=== PATIENT | male | born 1970 | race Caucasian/White ===

== ENCOUNTER → 2018-11-11 10:35 | Outpatient (CLI) | payer MEDICAID, SELFPAY ==
--- NOTE | 2018-11-11 10:43 | XR_ITS ---
XR forearm RT 2V HISTORY: ITS.REASON: KNOT ON RT FOREARM ORDERING PHYSICIAN: Chiara Izquierdo PATIENT AGE: 48 years COMPARISON: None FINDINGS: No obvious fracture, dislocation, lytic change or blastic change. Normal mineralization. Unremarkable soft tissues. A small osteophyte is present at the coracoid process as described in the elbow report. IMPRESSION: Small osteophyte of the coracoid process otherwise negative right forearm
--- NOTE | 2018-11-11 10:43 | XR_ITS ---
XR elbow LT min 3V HISTORY: ITS.REASON: LT ELBOW PAIN ORDERING PHYSICIAN: Chiara Izquierdo PATIENT AGE: 48 years COMPARISON: None FINDINGS: No fracture or dislocation. No lytic or blastic change. There is a small curvilinear osteophyte along the proximal and anterior aspect of the coracoid process. No displaced fat pad. IMPRESSION: Osteophyte of the coracoid process otherwise negative left elbow
--- NOTE | 2018-11-11 10:43 | XR_ITS ---
EXAM: XR cervical spine 5V HISTORY: ITS.REASON: NECK PAIN ORDERING PHYSICIAN: Chiara Izquierdo PATIENT AGE: 48 years COMPARISON: None FINDINGS: Normal alignment. No fracture or dislocation. No lytic or blastic change. No significant degenerative change. The disc spaces are preserved. The neural foramina are widely patent. No cervical ribs evident. IMPRESSION: Negative cervical spine
== END ==
PROVIDERS: PCP Nurse Practitioner Family; Visit Provider Nurse Practitioner Family
DX: M54.2 Cervicalgia (principal); M25.522 Pain in left elbow; M79.631 Pain in right forearm
CPT/HCPCS: 72050; 73080; 73090

== ENCOUNTER → 2018-11-22 09:29 | Outpatient (CLI) | payer MEDICAID, SELFPAY ==
--- NOTE | 2018-11-22 09:34 | US_ITS ---
US extremity RT limited CLINICAL INDICATION: ITS.REASON: RT FOREARM LUMP ORDERING PHYSICIAN: Chiara Izquierdo PATIENT AGE: 48 years Comparison: None FINDINGS: There is a 6 x 2 x 5 mm hypoechoic subcutaneous nodule in the proximal forearm corresponding to the palpable abnormality there is some blood flow noted around this lesion. IMPRESSION: Palpable nodule corresponds to a small cystic lesion in the subcutaneous area of the right proximal forearm.
== END ==
PROVIDERS: PCP Nurse Practitioner Family; Visit Provider Nurse Practitioner Family
DX: R22.31 Localized swelling, mass and lump, right upper limb (principal)
CPT/HCPCS: 76882

== ENCOUNTER 2020-02-12 10:32 | Emergency (ER) | payer SELFPAY ==
[2020-02-12 10:34] VITALS: BP 137/97; PULSE 81; RESP 18; TEMP 37; O2SAT 98; BMI 30.4
--- NOTE | 2020-02-12 12:05 | XR_ITS ---
PROCEDURE: XR KNEE RT 3V CLINICAL INDICATION: fall with pain COMPARISON: No exams were available for comparison FINDINGS: No fracture or dislocation. No lytic or blastic change. There is normal mineralization. The joint spaces are well-preserved. No significant degenerative/arthritic changes. No erosive changes evident. Other findings:None. IMPRESSION: No acute findings. Dictated by: Jonathan Jacobo MD 02/12/2020 13:51 Electronically signed by Jonathan Jacobo MD in [place] 02/12/2020 13:51
--- NOTE | 2020-02-12 12:39 | HMH.EDGENADL ---
ED Disposition Clinical Impression: Strain of right calf muscle Disposition: Home, Self-Care Condition on Discharge: Good Instructions: DI for Calf Muscle Strain, How to Use Crutches Additional Instructions: Crutches for 4 days. Ice and elevation. Ibuprofen for pain. Follow-up with primary care provider or orthopedics if not improved by Sunday. Prescriptions: Ibuprofen [Ibuprofen 800mg Tab] 800 mg PO Q8HP PRN #15 tab PRN Reason: Moderate Pain Prescription Printed Referrals: Ruma Purcell [Primary Care Provider] - Rea Burroughs MD [Physician] - - Critical Care Critical Care Time: No Attestation: On 02/12/20, the high probability of a clinically significant, sudden or life threatening deterioration of the following system(s) required my full and direct attention, intervention and personal management. The time I documented below is in addition to time spent performing reported procedures but includes the following listed in this critical care notation. Medical Decision Making - Dante Inquiry Pt receiving controlled substance: No Vital Signs: 02/12/20 10:34 Temperature 98.6 F Temperature Source Oral Pulse Rate [Left Radial] 81 Respiratory Rate 18 Blood Pressure [Right Arm] 137/97 H Blood Pressure Mean [Right Arm] 110 Blood Pressure Position [Right Arm] Sitting 02 Sat by Pulse Oximetry 98 Oxygen Delivery Method Room Air Orders (Tests/Meds): ORDERS Category Date Time Status Knee XR right 3 views [XR knee RT 3V] Stat Exams 02/12/20 12:05 Taken Medical Decision Narrative: Symptoms and exam suggest a muscular injury rather than a knee joint injury. General Adult HPI - General Chief complaint: PAIN Stated complaint: fall at work Time Seen by Provider: 02/12/20 12:39 Mode of Arrival: Ambulatory Limitations: No Limitations Description of Symptoms (Recalled from ER Triage Doc. by RN): to ed per pvt car with c/o rt knee pain states at work yesterday and stepped back tripped over a colvert pipe and fell backwards injuring rt leg. pt c/o pain lateral rt knee radiating down leg. pt states pain with movement. - History of Present Illness HPI narrative: Planes of an injury to his right lower leg. He tripped over a pipe yesterday and did something to his leg. He thought he could walk it off, but it has persisted and hurting whenever he moves it a certain way. He has no pain at rest. He locates the pain in the mid to proximal lateral right calf. Does not actually have pain in his knee joint. - Related Data Previous Rx's Medication Instructions Recorded Ibuprofen [Ibuprofen 800mg Tab] 800 mg PO Q8HP PRN #15 tab 02/12/20 Allergies Allergy/AdvReac Type Severity Reaction Status Date / Time No Known Allergies Allergy Unverified 08/28/17 15:10 [facility] History - Hepatitis A Screen Drug use history?: No High risk sexual behaviors?: No History of sexually transmitted infection?: No Currently employed?: No Childcare worker?: No Do you have indoor plumbing?: Yes Do you have electricity?: Yes Attestation statement:: This patient has been screened for Hepatitis A risk factors. I have reviewed the patient's past medical history: Yes - Social History Smoking Status: Current every day smoker Tobacco Type: cigarettes # Packs/Day (cigarettes): 2 Alcohol Intake: never Occupational Status: other Housing: other ROS Obtained: Yes Systems reviewed as appropriate & no additional complaints - Musculoskeletal Musculoskeletal: Reports as per HPI - Neurologic Neurologic: Denies numbness, Denies weakness Physical Exam - General General appearance: alert, in no apparent distress Comment: Sitting in a chair - Respiratory Respiratory exam: Absent: respiratory distress - Cardiovascular Cardiovascular exam: Present: regular rate - Extremities Exam Extremities exam: Present: normal capillary refill - Expanded Lower Extremity Exam Right Comment: Tenderness o
[2020-02-12 13:05] VITALS: BP 138/70; PULSE 80; RESP 16; TEMP 36.8; O2SAT 98
== END 2020-02-12 13:05 | disposition home or self-care (01) ==
PROVIDERS: Emergency Provider Emergency Medicine; PCP Nurse Practitioner Family
DX: S86.811A Strain of other muscle(s) and tendon(s) at lower leg level, right leg, initial encounter (principal); W01.0XXA Fall on same level from slipping, tripping and stumbling without subsequent striking against object, initial encounter; Y92.69 Other specified industrial and construction area as the place of occurrence of the external cause; Y99.0 Civilian activity done for income or pay; F17.210 Nicotine dependence, cigarettes, uncomplicated
CPT/HCPCS: 73562; 99282

== ENCOUNTER 2020-04-02 20:56 | Emergency (ER) | payer MEDICAID, SELFPAY ==
[2020-04-02 21:07] VITALS: BP 128/90; PULSE 82; RESP 14; TEMP 37; O2SAT 98; BMI 30.4
--- NOTE | 2020-04-02 21:15 | CT_ITS ---
PROCEDURE: CT CERVICAL SPINE WO CON CLINICAL INDICATION: neck pain Bilateral neck pain COMPARISON: [id number] XR cervical spine 5V from 11/11/2018 TECHNIQUE: Axial images obtained with sagittal and coronal reformats. All CT scans at the facility use one or more dose reduction, viz: automated exposure control, ma/kV adjustment per patient size (including targeted exams where dose is matched to indication, i.e. head), or iterative reconstruction technique. Axial spiral CT scanning performed of the cervical spine beginning at the base of the skull and continuing to the upper T-spine. 3-D multiplanar reconstruction with 3-D manipulation of volumetric data set in image rendering was completed by the radiologist and/or technologist with the supervision of the radiologist on independent workstation. FINDINGS: There is normal alignment. There is a well-circumscribed lucency through the superior tip of the superior facet of T1 on the right best detected on series 601, image 24 consistent with either an old fracture or ununited ossification center. No canal stenosis. No bony destructive changes. There are few scattered small lymph nodes in the neck. Lung apices are clear. The minimal bulging disc noted at C4-C5 centrally There is bilateral polypoid thickening in the external auditory canals IMPRESSION: 1. Lucency through the superior aspect of the superior facet of T1 on the right and may be due to an old fracture versus ununited ossification center. MRI may provide further evaluation to determine the age of this finding. 2. Minimal bulging disc C4-C5 Dictated by: Jonathan Jacobo MD 04/03/2020 07:28 Electronically signed by Jonathan Jacobo MD in [place] 04/03/2020 07:28
--- NOTE | 2020-04-02 22:11 | HMH.EDNECK ---
ED Disposition Clinical Impression: Acute cervical myofascial strain Qualifiers: Encounter type: initial encounter Qualified Code(s): S16.1XXA - Strain of muscle, fascia and tendon at neck level, initial encounter Disposition: Home, Self-Care Condition on Discharge: Good Instructions: DI for Neck Pain Additional Instructions: use meds and see pcp for follow up Prescriptions: predniSONE [Prednisone 20mg Tab] 20 mg PO BID #10 tab Transmission Status: Pending to [facility] Referrals: Maddie Nuñez APRN [Primary Care Provider] - - Critical Care Critical Care Time: No Attestation: On 04/02/20, the high probability of a clinically significant, sudden or life threatening deterioration of the following system(s) required my full and direct attention, intervention and personal management. The time I documented below is in addition to time spent performing reported procedures but includes the following listed in this critical care notation. Medical Decision Making - Medical Records Medical records reviewed: Yes: I reviewed the patient's medical records. - Dante Inquiry Pt receiving controlled substance: No Vital Signs: 04/02/20 21:07 Temperature 98.6 F Temperature Source Oral Pulse Rate [Right] 82 Respiratory Rate 14 Blood Pressure [Right Arm] 128/90 Blood Pressure Mean [Right Arm] 102 Blood Pressure Source [Right Arm] Automatic Cuff Blood Pressure Position [Right Arm] Sitting 02 Sat by Pulse Oximetry 98 Oxygen Delivery Method Room Air Orders (Tests/Meds): ORDERS Category Date Time Status CT cervical spine wo con Stat Cat Scan 04/02/20 21:15 Taken - CT Data CT Scan: C-Spine Time Received: 22:[address] Reviewed: Yes: I have viewed the radiologist's interpretation Preliminary Findings: No Fracture Seen Neck Pain/Injury HPI - General Chief Complaint: Neck Pain/Injury Stated Complaint: Neck pain radiating up into head Time Seen by Provider: 04/02/20 21:30 Source of Information: Patient, Medical Record Limitations: No Limitations Description of Symptoms (Recalled from ER Triage Doc. by RN): Pt states he has had neck pain for about a month, denies any trauma, has appointment with PCP at [facility] on sunday, wants x-rays for his appointment. - History of Present Illness HPI Narrative: midline neck pain over the last month w/o fever and no rash and no trauma - no focal neuro sx MD complaint: neck pain Onset (ago): week(s) Place: home Severity: moderate Quality: dull Context: other (no trauma ) Associated symptoms: headache Treatments prior to arrival: acetaminophen, ibuprofen - Related Data Previous Rx's Medication Instructions Recorded Ibuprofen [Ibuprofen 800mg Tab] 800 mg PO Q8HP PRN #15 tab 02/12/20 predniSONE [Prednisone 20mg 20 mg PO BID #10 tab 04/02/20 Tab] Allergies Allergy/AdvReac Type Severity Reaction Status Date / Time No Known Allergies Allergy Unverified 08/28/17 15:10 [facility] History - Hepatitis A Screen Drug use history?: No High risk sexual behaviors?: No History of sexually transmitted infection?: No Currently employed?: No Childcare worker?: No Do you have indoor plumbing?: Yes Do you have electricity?: Yes Attestation statement:: This patient has been screened for Hepatitis A risk factors. I have reviewed the patient's past medical history: Yes Medical History: Denies:: Diabetes Mellitus Type 1, Diabetes Mellitus Type 2 - Social History Smoking Status: Current every day smoker Tobacco Type: cigarettes # Packs/Day (cigarettes): 2 Alcohol Intake: never Occupational Status: employed Housing: other ROS Obtained: Yes All systems reviewed & no additional complaints - Constitutional Constitutional: Denies fever(s) - Eyes Eyes: Denies change in vision - ENT Ears, Nose, Mouth, and Throat: Denies sore throat - Cardiovascular Cardiovascular: Denies chest pain - Respiratory Respiratory: No cough -
[2020-04-02 22:42] VITALS: BP 132/72; PULSE 76; RESP 14; TEMP 37; O2SAT 99
== END 2020-04-02 22:45 | disposition home or self-care (01) ==
PROVIDERS: Emergency Provider Emergency Medicine; PCP Nurse Practitioner Family
DX: S16.1XXA Strain of muscle, fascia and tendon at neck level, initial encounter (principal)
CPT/HCPCS: 72125; 99282

== ENCOUNTER 2020-07-19 12:08 | Emergency (ER) | payer MEDICAID, SELFPAY ==
[2020-07-19] VITALS (7 sets, daily range): BP systolic 114–131; BP diastolic 75–88; PULSE 84–104; RESP 18–19; TEMP 36.8; O2SAT 95–96; BMI 7030.0
--- NOTE | 2020-07-19 12:22 | ECG_ITS ---
APPROVED REPORT Exam: Resting ECG HR:88 bpm ECG Measurements Heart Rate 88 AXES MO 190 P 53 QRSd 104 QRS -22 QT 358 T 57 QTc 433 Conclusion Normal sinus rhythm Poor R Wave Progression LAD Abnormal ECG Electronically signed by : David Queen, 07/20/2020 17:27:53
--- NOTE | 2020-07-19 12:38 | XR_ITS ---
PROCEDURE: XR CHEST PORTABLE CLINICAL HISTORY: chest pain COMPARISON: No exams were available for comparison FINDINGS: The cardiomediastinal silhouette and pulmonary vascularity are within normal limits. No lobar consolidation or collapse. There is some hyperattenuation in the upper lobe suggesting COPD. A nodular opacity is noted in the left midlung at 9 mm. No acute bony abnormalities. IMPRESSION: Possible COPD with left midlung nodule. Follow-up suggested to confirm stability. Dictated by: Jonathan Jacobo MD 07/19/2020 14:28 Jonathan Jacobo MD in [place] 07/19/2020 14:28
--- NOTE | 2020-07-19 12:50 | PC.NURSE ---
Rad at bedside
[2020-07-19 13:09] LABS: Chloride 103 mmol/L (98-107); Potassium 3.7 mmoL/L (3.5-5.1); Sodium 141 mmol/L (136-145)
[2020-07-19 13:12] LABS: Anion Gap 13.7 mEq/L (5-15); Blood Urea Nitrogen 8 mg/dl (9-20); Calcium 9.9 mg/dl (8.4-10.2); Carbon Dioxide 28 mmol/L (22.0-30.0); Estimated Glomerular Filt Rate 102 ml/min (>60); GFR (African American) 124 ML/MIN (>60); Glucose 153 mg/dl (74-100)
[2020-07-19 13:30] LABS: Troponin I < 0.01 ng/ml (0.00-0.034)
[2020-07-19 13:40] LABS: Basophils # 0.1 K/mm3 (0-0.2); Basophils % 0.8 % (0.1-2.0); Eosinophils # 0.1 K/mm3 (0.0-0.4); Eosinophils % 1.7 % (0.1-12.0); Hematocrit 48.1 % (42.0-52.0); Hemoglobin 16.8 g/dL (14.1-18.0); Lymphocytes # 1.6 K/mm3 (0.7-4.5); Lymphocytes % 25.4 % (10-50); Mean Corpuscular HGB Conc 34.9 g/dL (31.8-35.4); Mean Corpuscular Hemoglobin 31.7 pg (27.0-31.2); Mean Corpuscular Volume 90.8 fl (80-94); Mean Platelet Volume 8.1 fl (7.4-10.4); Monocytes # 0.5 K/mm3 (0.1-1.0); Monocytes % 7.3 % (1.7-9.3); Neutrophils # 4.2 K/mm3 (1.8-7.8); Neutrophils % 64.8 % (37.0-80.0); Platelet Count 229 K/mm3 (142-424); Red Cell Distribution Width 13.1 % (11.5-17.5); White Blood Count 6.4 K/mm3 (4.8-10.8)
--- NOTE | 2020-07-19 14:05 | HMH.EDCP ---
ED Disposition Clinical Impression: Shortness of breath, Lung nodule Chest pain Qualifiers: Chest pain type: unspecified Qualified Code(s): R07.9 - Chest pain, unspecified Disposition: Home, Self-Care Condition on Discharge: Good Instructions: DI for Atypical Chest Pain, DI for Shortness of Breath Referrals: Maddie Nuñez APRN [Primary Care Provider] - 3 days Richard Garcia MD [Staff Physician] - 3 days - Critical Care Critical Care Time: No Attestation: On 07/19/20, the high probability of a clinically significant, sudden or life threatening deterioration of the following system(s) required my full and direct attention, intervention and personal management. The time I documented below is in addition to time spent performing reported procedures but includes the following listed in this critical care notation. Medical Decision Making - Medical Records Medical records reviewed: Yes: I reviewed the patient's medical records. - Dante Inquiry Pt receiving controlled substance: No Vital Signs: 07/19/20 12:32 07/19/20 12:48 07/19/20 13:08 Temperature 98.2 F Temperature Source Oral Pulse Rate 84 Pulse Rate [Left] 84 91 H Respiratory Rate 19 Blood Pressure [Right Arm] 123/88 131/81 Blood Pressure Mean [Right Arm] 99 97 Blood Pressure Source [Right Arm] Automatic Cuff Automatic Cuff Blood Pressure Position [Right Arm] Supine Sitting 02 Sat by Pulse Oximetry 95 96 Oxygen Delivery Method Room Air Room Air 07/19/20 13:11 07/19/20 13:39 07/19/20 15:02 Temperature Temperature Source Pulse Rate Pulse Rate [Left] 104 H 100 H 90 Respiratory Rate Blood Pressure [Right Arm] 122/77 121/88 114/75 Blood Pressure Mean [Right Arm] 92 99 88 Blood Pressure Source [Right Arm] Automatic Cuff Automatic Cuff Automatic Cuff Blood Pressure Position [Right Arm] Sitting Sitting Sitting 02 Sat by Pulse Oximetry 96 95 96 Oxygen Delivery Method Room Air Room Air Room Air - Lab Data Lab results reviewed: Yes: I reviewed the patient's lab results. Lab Results 07/19/20 12:05: WBC 6.4, RBC 5.30, Hgb 16.8, Hct 48.1, MCV 90.8, MCH 31.7 H, MCHC 34.9, RDW 13.1, Plt Count 229, MPV 8.1, Neut % (Auto) 64.8, Lymph % (Auto) 25.4, [place] % (Auto) 7.3, Eos % (Auto) 1.7, Baso % (Auto) 0.8, Neut # (Auto) 4.2, Lymph # (Auto) 1.6, [place] # (Auto) 0.5, Eos # (Auto) 0.1, Baso # (Auto) 0.1 07/19/20 12:05: Sodium 141, Potassium 3.7, Chloride 103, Carbon Dioxide 28, Anion Gap 13.7, BUN 8 L, Creatinine 0.80, Estimated Creat Clear -134 L, Estimated GFR 102, Est GFR ( Amer) 124, Glucose 153 H, Calcium 9.9, Troponin I < 0.01 07/19/20 12:50: Troponin I < 0.01, TSH 1.56 07/19/20 12:50: D-Dimer 0.34 07/19/20 12:50: Free T4 0.96 Result diagrams: 07/19/20 12:05 07/19/20 12:05 Orders (Tests/Meds): ED MEDICATIONS Generic Name Dose Route Start Last Admin Trade Name Freq PRN Reason Stop Dose Admin Sodium Chloride 1,000 mls @ 999 mls/hr 07/19/20 14:30 07/19/20 14:22 Sod Chlor 0.9% 1000ml Bag IV 07/19/20 15:30 999 mls/hr .Q1H1M SRINI Administration Discontinued Medications Generic Name Dose Route Start Last Admin Trade Name Freq PRN Reason Stop Dose Admin Aspirin 324 mg 07/19/20 12:42 07/19/20 12:44 Aspirin 81mg Chewable Tablet PO 07/19/20 12:43 324 mg ONCE ONE Administration ORDERS Category Date Time Status Troponin I Q3H Lab 07/19/20 18:45 Ordered - Radiology Data #1 Image Reviewed: Yes I reviewed the patient's radiology image Preliminary Findings: Normal/NAD - ECG Data Tracing #1 EKG at 1222 shows normal sinus rhythm with a rate of 88. No acute ST segment elevation or depression. No hyperacute T waves. Normal intervals. EKG interpreted by me. - ELIGIO Score for Non-Stemi Age of Patient: 50-59 years old Heart Rate: 90-109 bpm Systolic Blood Pressure: 120-139 mmhg Serum Creatinine: 0.80-1.19 mg/dl CHF [place] Class: I-No CHF Other Risk Factors: None Non-
[2020-07-19 14:31] LABS: D-Dimer 0.34 ug/mL (0.15-8.0)
[2020-07-19 14:45] LABS: Free T4 (Free Thyroxine) 0.96 ng/dl (0.78-2.19)
[2020-07-19 14:58] LABS: Thyroid Stimulating Hormone 1.56 uIU/mL (0.465-4.68)
[2020-07-19 14:59] LABS: Troponin I < 0.01 ng/ml (0.00-0.034)
== END 2020-07-19 15:25 | disposition home or self-care (01) ==
PROVIDERS: Emergency Provider Emergency Medicine; PCP Nurse Practitioner Family
DX: R07.9 Chest pain, unspecified (principal); R91.1 Solitary pulmonary nodule; J44.9 Chronic obstructive pulmonary disease, unspecified; E78.5 Hyperlipidemia, unspecified; I10 Essential (primary) hypertension; F17.210 Nicotine dependence, cigarettes, uncomplicated
CPT/HCPCS: 71045; 80048; 84439; 84443; 84484; 85025; 85378; 93005; 96365; 99283

== ENCOUNTER 2020-11-22 16:25 | Emergency (ER) | payer OTHER, SELFPAY ==
[2020-11-22] VITALS (13 sets, daily range): BP systolic 125–145; BP diastolic 68–96; PULSE 72–95; RESP 18–19; TEMP 36.7–36.8; O2SAT 96–98; BMI 33.3
--- NOTE | 2020-11-22 16:38 | XR_ITS ---
PROCEDURE: XR CHEST 2V CLINICAL HISTORY: chest pain COMPARISON: CR XR CHEST PORTABLE from 07/19/2020 FINDINGS: The cardiomediastinal silhouette and pulmonary vascularity are within normal limits. The lungs are clear without infiltrates, suspicious nodules, or pleural effusions. There is mild coarsening of the bronchovascular markings nonspecific but may be seen with smoking related lung disease. No acute bony findings. IMPRESSION: Coarsening of the bronchovascular markings which may be seen with smoking related lung disease otherwise negative Dictated by: Jonathan Jacobo MD 11/22/2020 20:25 Jonathan Jacobo MD in [place] 11/22/2020 20:25
--- NOTE | 2020-11-22 16:40 | ECG_ITS ---
APPROVED REPORT Exam: Resting ECG HR:80 bpm ECG Measurements Heart Rate 80 AXES NV 192 P 58 QRSd 96 QRS -34 QT 366 T 56 QTc 422 Conclusion Normal sinus rhythm Left axis deviation Abnormal ECG Electronically signed by : Hernesto Morelos, 11/23/2020 19:37:10
[2020-11-22 16:53] LABS: Basophils # 0.1 K/mm3 (0-0.2); Basophils % 0.9 % (0.1-2.0); Eosinophils # 0.2 K/mm3 (0.0-0.4); Eosinophils % 2.6 % (0.1-12.0); Hematocrit 46.5 % (42.0-52.0); Hemoglobin 15.9 g/dL (14.1-18.0); Lymphocytes # 2.2 K/mm3 (0.7-4.5); Lymphocytes % 27.6 % (10-50); Mean Corpuscular HGB Conc 34.2 g/dL (31.8-35.4); Mean Corpuscular Hemoglobin 30.9 pg (27.0-31.2); Mean Corpuscular Volume 90.3 fl (80-94); Mean Platelet Volume 7.6 fl (7.4-10.4); Monocytes # 0.7 K/mm3 (0.1-1.0); Monocytes % 8.8 % (1.7-9.3); Neutrophils # 4.8 K/mm3 (1.8-7.8); Platelet Count 238 K/mm3 (142-424); Red Blood Count 5.15 M/mm3 (4.60-6.20); Red Cell Distribution Width 13.2 % (11.5-17.5)
[2020-11-22 17:05] LABS: Anion Gap 12.2 mEq/L (5-15); Blood Urea Nitrogen 9 mg/dl (9-20); Calcium 9.2 mg/dl (8.4-10.2); Carbon Dioxide 25 mmol/L (22.0-30.0); Chloride 107 mmol/L (98-107); Creatinine Clearance Estimated 153 mL/min (50-200); Estimated Glomerular Filt Rate 102 ml/min (>60); GFR (African American) 123 ML/MIN (>60); Glucose 97 mg/dl (74-100); Potassium 4.2 mmoL/L (3.5-5.1); Sodium 140 mmol/L (136-145)
[2020-11-22 17:17] LABS: Troponin I < 0.01 ng/ml (0.00-0.034)
--- NOTE | 2020-11-22 20:02 | HMH.EDCP ---
ED Disposition Clinical Impression: Atypical chest pain, Costochondritis, acute Disposition: Home, Self-Care Condition on Discharge: Good Instructions: DI for Atypical Chest Pain Referrals: Maddie Nuñez APRN [Primary Care Provider] - 3 days Richard Garcia MD [Staff Physician] - 11/23/20 8:00 am Time of Disposition: 20:14 - Critical Care Critical Care Time: No Attestation: On 11/22/20, the high probability of a clinically significant, sudden or life threatening deterioration of the following system(s) required my full and direct attention, intervention and personal management. The time I documented below is in addition to time spent performing reported procedures but includes the following listed in this critical care notation. Medical Decision Making - Dante Inquiry Pt receiving controlled substance: No Vital Signs: 11/22/20 16:28 11/22/20 16:33 11/22/20 16:34 Temperature 98.3 F Temperature Source Oral Pulse Rate 95 H Pulse Rate [Right Radial] 95 H Respiratory Rate 18 18 Blood Pressure 131/89 Blood Pressure [Right Arm] 145/89 H Blood Pressure Mean 101 Blood Pressure Mean [Right Arm] 107 Blood Pressure Source [Right Arm] Automatic Cuff Blood Pressure Position [Right Arm] Sitting 02 Sat by Pulse Oximetry 97 97 96 Oxygen Delivery Method Room Air 11/22/20 16:47 11/22/20 17:00 11/22/20 17:15 Temperature Temperature Source Pulse Rate 72 Pulse Rate [Right Radial] Respiratory Rate 18 Blood Pressure 136/96 H Blood Pressure [Right Arm] Blood Pressure Mean 105 Blood Pressure Mean [Right Arm] Blood Pressure Source [Right Arm] Blood Pressure Position [Right Arm] 02 Sat by Pulse Oximetry 98 97 97 Oxygen Delivery Method 11/22/20 17:30 11/22/20 17:45 11/22/20 18:00 Temperature Temperature Source Pulse Rate 84 Pulse Rate [Right Radial] Respiratory Rate 18 Blood Pressure 132/93 H 145/86 H Blood Pressure [Right Arm] Blood Pressure Mean 104 107 Blood Pressure Mean [Right Arm] Blood Pressure Source [Right Arm] Blood Pressure Position [Right Arm] 02 Sat by Pulse Oximetry 97 96 97 Oxygen Delivery Method 11/22/20 18:15 11/22/20 18:30 11/22/20 18:45 Temperature Temperature Source Pulse Rate 76 78 Pulse Rate [Right Radial] Respiratory Rate 18 18 Blood Pressure 125/89 Blood Pressure [Right Arm] Blood Pressure Mean 101 Blood Pressure Mean [Right Arm] Blood Pressure Source [Right Arm] Blood Pressure Position [Right Arm] 02 Sat by Pulse Oximetry 96 97 98 Oxygen Delivery Method - Lab Data Lab results reviewed: Yes: I reviewed the patient's lab results. Lab Results 11/22/20 16:46: WBC 8.0, RBC 5.15, Hgb 15.9, Hct 46.5, MCV 90.3, MCH 30.9, MCHC 34.2, RDW 13.2, Plt Count 238, MPV 7.6, Neut % (Auto) 60.0, Lymph % (Auto) 27.6, [place] % (Auto) 8.8, Eos % (Auto) 2.6, Baso % (Auto) 0.9, Neut # (Auto) 4.8, Lymph # (Auto) 2.2, [place] # (Auto) 0.7, Eos # (Auto) 0.2, Baso # (Auto) 0.1 11/22/20 16:46: Sodium 140, Potassium 4.2, Chloride 107, Carbon Dioxide 25, Anion Gap 12.2, BUN 9, Creatinine 0.80, Estimated Creat Clear 153, Estimated GFR 102, Est GFR ( Amer) 123, Glucose 97, Calcium 9.2, Troponin I < 0.01 11/22/20 19:20: Troponin I < 0.01 Result diagrams: 11/22/20 16:46 11/22/20 16:46 Orders (Tests/Meds): ORDERS Category Date Time Status Chest XR 2 view (NOT portable) [XR chest 2V] Stat Exams 11/22/20 16:38 Taken Troponin I Q3H Lab 11/22/20 22:45 Ordered - Radiology Data #1 Image(s): Chest Image Reviewed: Yes I reviewed the patient's radiology image Preliminary Findings: Normal/NAD - ECG Data Tracing #1 80 bpm, normal sinus rhythm, normal intervals, no ectopy, no ST elevation or depression. ECG initial impression date: 11/22/20 ECG initial impression time: 16:45 Medical Decision Narrative: 50yo M evaluated for chest pain. Patient is in no acute distres
[2020-11-22 20:06] LABS: Troponin I < 0.01 ng/ml (0.00-0.034)
== END 2020-11-22 20:25 | disposition home or self-care (01) ==
PROVIDERS: Emergency Provider Family Medicine; PCP Nurse Practitioner Family
DX: M94.0 Chondrocostal junction syndrome [Tietze] (principal); I10 Essential (primary) hypertension; E78.5 Hyperlipidemia, unspecified; F17.210 Nicotine dependence, cigarettes, uncomplicated
CPT/HCPCS: 71046; 80048; 84484; 85025; 93005; 99282

== ENCOUNTER 2021-03-22 22:01 | Emergency (ER) | payer SELFPAY ==
[2021-03-22 22:30] VITALS: BP 148/98; PULSE 113; RESP 20; TEMP 37.7; O2SAT 98; BMI 34.2
[2021-03-22 23:00] VITALS: BP 159/113; PULSE 117; O2SAT 96
[2021-03-22 23:45] VITALS: BP 134/90; PULSE 109; O2SAT 96
[2021-03-22 23:46] LABS: Basophils # 0.1 K/mm3 (0-0.2); Basophils % 0.5 % (0.1-2.0); Eosinophils # 0.2 K/mm3 (0.0-0.4); Eosinophils % 1.5 % (0.1-12.0); Hematocrit 45.6 % (42.0-52.0); Hemoglobin 15.3 g/dL (14.1-18.0); Lymphocytes # 2.1 K/mm3 (0.7-4.5); Mean Corpuscular HGB Conc 33.6 g/dL (31.8-35.4); Mean Corpuscular Hemoglobin 29.9 pg (27.0-31.2); Mean Corpuscular Volume 89.1 fl (80-94); Mean Platelet Volume 7.5 fl (7.4-10.4); Monocytes % 6.7 % (1.7-9.3); Neutrophils # 10.8 K/mm3 (1.8-7.8); Neutrophils % 76.3 % (37.0-80.0); Platelet Count 218 K/mm3 (142-424); Red Blood Count 5.12 M/mm3 (4.60-6.20); Red Cell Distribution Width 12.7 % (11.5-17.5); White Blood Count 14.2 K/mm3 (4.8-10.8)
--- NOTE | 2021-03-22 23:46 | HMH.EDSKAF ---
ED Disposition Clinical Impression: Cellulitis of sacral region, SIRS (systemic inflammatory response syndrome) Disposition: Home, Self-Care Condition on Discharge: Good Instructions: DI for Cellulitis -- Adult Additional Instructions: use meds and see pcp for follo wup Prescriptions: Sulfamethoxazole/Trimethoprim [Bactrim DS tablet] 1 each PO BID #20 tab Transmission Status: Pending to [facility] cephALEXin [cephALEXin 500mg capsule*] 500 mg PO TID #30 cap Transmission Status: Pending to [facility] Referrals: Maddie Nuñez APRN [Primary Care Provider] - - Critical Care Critical Care Time: No Attestation: On 03/22/21, the high probability of a clinically significant, sudden or life threatening deterioration of the following system(s) required my full and direct attention, intervention and personal management. The time I documented below is in addition to time spent performing reported procedures but includes the following listed in this critical care notation. Medical Decision Making - Medical Records Medical records reviewed: Yes: I reviewed the patient's medical records. - Dante Inquiry Pt receiving controlled substance: No Vital Signs: 03/22/21 22:30 03/22/21 23:00 03/22/21 23:45 Temperature 99.9 F H Temperature Source Oral Pulse Rate 117 H 109 H Pulse Rate [Right] 113 H Respiratory Rate 20 Blood Pressure 159/113 H 134/90 Blood Pressure [Right Arm] 148/98 H Blood Pressure Mean [Right Arm] 114 Blood Pressure Source [Right Arm] Automatic Cuff 02 Sat by Pulse Oximetry 98 96 96 Oxygen Delivery Method Room Air 03/23/21 00:00 03/23/21 00:30 03/23/21 01:30 Temperature Temperature Source Pulse Rate 105 H 95 H 98 H Pulse Rate [Right] Respiratory Rate Blood Pressure 131/97 H 129/92 H 132/89 Blood Pressure [Right Arm] Blood Pressure Mean [Right Arm] Blood Pressure Source [Right Arm] 02 Sat by Pulse Oximetry 95 96 96 Oxygen Delivery Method 03/23/21 02:00 03/23/21 02:30 Temperature Temperature Source Pulse Rate 94 H 91 H Pulse Rate [Right] Respiratory Rate Blood Pressure 136/93 H 136/83 Blood Pressure [Right Arm] Blood Pressure Mean [Right Arm] Blood Pressure Source [Right Arm] 02 Sat by Pulse Oximetry 96 96 Oxygen Delivery Method - Lab Data Lab results reviewed: Yes: I reviewed the patient's lab results. Lab Results 03/22/21 23:25: WBC 14.2 H, RBC 5.12, Hgb 15.3, Hct 45.6, MCV 89.1, MCH 29.9, MCHC 33.6, RDW 12.7, Plt Count 218, MPV 7.5, Neut % (Auto) 76.3, Lymph % (Auto) 15.0, Mckenzie % (Auto) 6.7, Eos % (Auto) 1.5, Baso % (Auto) 0.5, Neut # (Auto) 10.8 H, Lymph # (Auto) 2.1, Mckenzie # (Auto) 1.0, Eos # (Auto) 0.2, Baso # (Auto) 0.1, ESR 12 03/22/21 23:25: Sodium 137, Potassium 3.9, Chloride 104, Carbon Dioxide 26, Anion Gap 10.9, BUN 8 L, Creatinine 0.70, Estimated Creat Clear 180, Estimated GFR 119, Est GFR ( Amer) 144, Glucose 135 H, Calcium 9.3, Total Bilirubin 0.7, AST 20, ALT 23, Alkaline Phosphatase 87, C-Reactive Protein 35.7 H, Total Protein 7.7, Albumin 4.5, Globulin 3.2, Albumin/Globulin Ratio 1.4, Procalcitonin 0.045 03/22/21 23:25: Lactate 0.9 Result diagrams: 03/22/21 23:25 03/22/21 23:25 Orders (Tests/Meds): ED MEDICATIONS Generic Name Dose Route Start Last Admin Trade Name Freq PRN Reason Stop Dose Admin Sodium Chloride 1,000 mls @ 999 mls/hr 03/22/21 23:45 03/23/21 00:09 Sod Chlor 0.9% 1000ml Bag IV 03/23/21 00:45 999 mls/hr .Q1H1M SRINI Administration Discontinued Medications Generic Name Dose Route Start Last Admin Trade Name Freq PRN Reason Stop Dose Admin Vancomycin HCl 2,000 mg/ 250 mls @ 125 mls/hr 03/23/21 00:17 03/23/21 00:30 Sodium Chloride IV 03/23/21 02:16 125 mls/hr ONCE ONE Administration Protocol Iopamidol 100 ml 03/23/21 00:54 03/23/21 00:54 Iopamidol-370 (76%);100ml Bottle IV 03/23/21 00:55 100 ml ONCE ONE Administration
[2021-03-22 23:48] LABS: Alanine Aminotransferase 23 U/L (12-78); Albumin Level 4.5 g/dl (3.5-5.0); Albumin/Globulin Ratio 1.4 (1.1-1.8); Alkaline Phosphatase 87 U/L (38-126); Anion Gap 10.9 mEq/L (5-15); Aspartate Amino Transferase 20 U/L (17-59); Bilirubin,Total 0.7 mg/dl (0.2-1.3); Blood Urea Nitrogen 8 mg/dl (9-20); Calcium 9.3 mg/dl (8.4-10.2); Carbon Dioxide 26 mmol/L (22.0-30.0); Chloride 104 mmol/L (98-107); Creatinine Clearance Estimated 180 mL/min (50-200); Estimated Glomerular Filt Rate 119 ml/min (>60); GFR (African American) 144 ML/MIN (>60); Globulin 3.2 g/dL (1.3-3.2); Glucose 135 mg/dl (74-100); Potassium 3.9 mmoL/L (3.5-5.1); Sodium 137 mmol/L (136-145); Total Protein,Serum 7.7 g/dl (6.3-8.2)
[2021-03-22 23:51] LABS: Lactic Acid 0.9 mmol/L (0.7-2.1)
[2021-03-22 23:53] LABS: C-Reactive Protein 35.7 mg/L (0-4)
[2021-03-23] VITALS: BP 131/97; PULSE 105; O2SAT 95
[2021-03-23 00:07] LABS: Procalcitonin 0.045 ng/mL (0.0-2.0)
[2021-03-23 00:16] LABS: Erythrocyte Sedimentation Rate 12 mm/hr (0-20)
--- NOTE | 2021-03-23 00:17 | CT_ITS ---
PROCEDURE INFORMATION: Exam: CT Pelvis With Contrast Exam date and time: 03/23/2021 12:17 AM Age: 50 years old Clinical indication: Other: Infection at the cleft posterior low back; Patient HX: Infection posterior low back at the cleft RO abcess; Additional info: Infection top of cleft, R/O abscess TECHNIQUE: Imaging protocol: Computed tomography images of the pelvis with intravenous contrast. Radiation optimization: All CT scans at this facility use at least one of these dose optimization techniques: automated exposure control; mA and/or kV adjustment per patient size (includes targeted exams where dose is matched to clinical indication); or iterative reconstruction. Contrast material: ISOVUE; Contrast volume: 100 ml; Contrast route: IV; COMPARISON: EXTRL US extremity RT limited 11/22/2018 9:37 AM FINDINGS: Stomach and bowel: Visualized small bowel and colon are unremarkable. Appendix: Unremarkable appendix. Intraperitoneal space: Unremarkable. No free air. No significant fluid collection. Vasculature: Mild atherosclerotic changes of the arteries. Lymph nodes: Unremarkable. No enlarged lymph nodes. Urinary bladder: Normal. No mass. Reproductive: Bilateral hydroceles. Bones/joints: Chronic pars defects of L5. Soft tissues: There is skin thickening and soft tissue edema around the superior aspect of the gluteal cleft. IMPRESSION: There is skin thickening and soft tissue edema around the superior aspect of the gluteal cleft. This is compatible with cellulitis. No bony changes to correlate with osteomyelitis. No abscess.
[2021-03-23 00:30] VITALS: BP 129/92; PULSE 95; O2SAT 96
[2021-03-23 01:30] VITALS: BP 132/89; PULSE 98; O2SAT 96
[2021-03-23 02:00] VITALS: BP 136/93; PULSE 94; O2SAT 96
[2021-03-23 02:30] VITALS: BP 136/83; PULSE 91; O2SAT 96
[2021-03-23 03:07] VITALS: BP 139/84; PULSE 95; RESP 20; TEMP 36.6; O2SAT 93
== END 2021-03-23 03:15 | disposition home or self-care (01) ==
PROVIDERS: Emergency Provider Emergency Medicine; PCP Nurse Practitioner Family
DX: L03.317 Cellulitis of buttock (principal); R65.10 Systemic inflammatory response syndrome (SIRS) of non-infectious origin without acute organ dysfunction; I10 Essential (primary) hypertension; E78.5 Hyperlipidemia, unspecified; F17.210 Nicotine dependence, cigarettes, uncomplicated
CPT/HCPCS: 72193; 80053; 83605; 84145; 85025; 85651; 86140; 87040; 87070; 87077; 87186; 87205; 96365; 96366; 96375; 99283; J3370; Q9967

== ENCOUNTER → 2022-04-21 07:56 | Outpatient (CLI) | payer SELFPAY ==
--- NOTE | 2022-04-21 07:57 | CA_ITS ---
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: Nimco Mayer RT(R) Ht: 5 ft 8 in Wt: 225lbs BSA: 2.15 BP: 145/97 mmHg Indications: CP, SOA, smoker, HTN, hyperlipidemia 2D Dimensions LVOT 2.18 cm (M/F) 1.5-2.5 LA Volume 55.70 mL LA Volume Index 25.90 mL/m2 (M/F) 16-34 M-Mode Dimensions RVDd 2.58 cm (0.9-2.6) LA Diam 4.96 cm (1.9-4.0) LVDd 4.47 cm (3.5-5.7) Ao Diam 3.27 cm (2.0-3.7) LVDs 3.34 cm (3.5-5.7) IVSd 0.97 cm (0.6-1.1) PWd 1.01 cm (0.6-1.1) EF (Teich) 50.10% FS 25.30% EDV (Teich) 91.00 mL ESV (Teich) 45.40 mL LV Diastology E Decel Time 163.00 (160-240 msec) E/A Ratio 1.26 MED E' 7.50 (< 7 cm/sec) E'/MED E' Ratio 10.53 (>14) LAT E' 11.70 (<10 cm/sec) E/LAT E' Ratio 6.75 (>14) Mitral Valve MV E Max Elton. 79.00 (40-130 cm/s) MV A Velocity 63.00 (40-130 cm/s) E/A Ratio 1.26 MV Decel. Time 163.00 (160-240 ms) MV PHT 48.00 ms Left Ventricle Left atrium is normal size, left ventricle is normal size, estimated ejection fraction 55% with no regional wall motion abnormality, diastolic parameters are within normal range. Right Ventricle Right atrium and right ventricle are normal size and contractility. Aortic Valve Aortic valve is minimally thickened and fibrosed there is no aortic stenosis or aortic insufficiency. Mitral Valve Mitral valve is grossly normal, there is trace mitral regurgitation. Tricuspid Valve Tricuspid grossly normal, there is no significant tricuspid regurgitation. Pulmonic Valve Pulmonic valve is poorly visualized. Great Vessels Aortic root is normal size. Inferior vena cava is normal size with normal inspiratory collapse. Pericardium No significant pericardial effusion noted. Conclusion 1. Normal left ventricular size preserved left ventricular systolic function, estimated ejection fraction 55% with no regional wall motion abnormality, diastolic parameters are within normal range. 2. Trace mitral regurgitation. 3. No significant pericardial effusion collection 4. Inferior vena cava is normal size with normal inspiratory collapse. Electronically signed by : Néstor Barton MD 04/21/2022 13:07:37
--- NOTE | 2022-04-21 07:58 | US_ITS ---
FINAL REPORT CLINICAL HISTORY: claudication, current smoker, HTN, hyperlipidemia, bilateral rest pain, bilateral claudication FINDINGS: ANKLE-BRACHIAL PRESSURE INDICES Pressure indices are as follows: RIGHT LOWER EXTREMITY: Ankle-brachial pressure index: 1.2 Comments: Normal LEFT LOWER EXTREMITY: Ankle-brachial pressure index: 1.16 Comments: Normal CONCLUSION: No evidence of significant obstructive peripheral vascular disease of the lower extremities Reviewed, Interpreted and Dictated by Sy Elliott III, MD Transcribed by Matilda Juares Authenticated and [facility]
--- NOTE | 2022-04-21 09:25 | CA_ITS ---
APPROVED REPORT Exam: Exercise Treadmill Technologist: Meghan Stokes, Ht: 5 ft 8 in Wt: 225 lbs BSA: 2.15 m2 HR: 59 bpm BP: 137/89 mmHg Medical History Medications: Lisinopril,,,,, Atorvastatin,,,,, Buspirone,,,,, Metoprolol Succinate ER,,,,, ApRoxetine hci,,,,, Stress Test Details Test: Murphy HR Resting HR: 66 bpm Max Heart Rate (APMHR): 168 bpm Max HR Achieved: 127 bpm Target HR (85% APMHR): 143 bpm % of APMHR: 76 Recovery HR: 78 bpm BP Resting BP: 140.0/94.0 mmHg Max BP: 190.0/120.0 mmHg Recovery BP: 153.0/90.0 mmHg ECG Clinical Exercise duration: 05:33 min Highest Stage Achieved: II Exercise capacity: 7.0 METs Stress ECG Conclusion Target not reached due to SOA. Symptoms: Mild SOA Denies CP Arrhythmias/Ectopy: Occasional PVC ST-T Changes: <1.5mm ST Changes. Patient did not achieve the target heart rate, the EKG portion of the stress test is nondiagnostic. Test Summary RECOVERY 01:00 0.0 0.0 92 . . . Stop exercise at 05:33 REST . . . . . . . Standing REST 08:37 0.0 0.0 66 . 140/ 94 . . Stage 1 01:00 10.0 1.7 94 . . . . Stage 1 02:00 10.0 1.7 100 . . . . Stage 1 03:00 10.0 1.7 96 . 130/ 98 . . Stage 2 01:00 12.0 2.5 118 . . . . Stage 2 02:00 12.0 2.5 126 . 160/104 . . Stage 2 02:33 12.0 2.5 126 . 160/104 . Stop exercise at 05:33 RECOVERY 01:00 0.0 0.0 92 . . . . RECOVERY 02:00 0.0 0.0 77 . 190/120 . . RECOVERY 03:00 0.0 0.0 82 . 162/ 90 . . RECOVERY 03:55 0.0 0.0 77 . 153/ 90 . . Electronically signed by : Néstor Barton MD 04/21/2022 11:39:15
== END ==
LOC: RT 07:57
PROVIDERS: PCP Nurse Practitioner Family; Visit Provider Physician Assistant
DX: R06.02 Shortness of breath (principal); R07.9 Chest pain, unspecified; I10 Essential (primary) hypertension; I73.9 Peripheral vascular disease, unspecified; E78.5 Hyperlipidemia, unspecified; F17.200 Nicotine dependence, unspecified, uncomplicated; Z82.49 Family history of ischemic heart disease and other diseases of the circulatory system
CPT/HCPCS: 93017; 93306; 93923

== ENCOUNTER → 2022-05-05 14:04 | Outpatient (CLI) | payer SELFPAY ==
--- NOTE | 2022-05-05 14:14 | CT_ITS ---
FINAL REPORT TECHNIQUE: Axial images were obtained through the chest without contrast. This study was performed with techniques to keep radiation doses as low as reasonably achievable (ALARA). Individualized dose reduction techniques using automated exposure control or adjustment of mA and/or kV according to the patient's size were employed. CLINICAL HISTORY: Abnormal CXR FINDINGS: There is an ovoid linear density in the right upper lobe measuring approximately 3.3 x 1.3 cm seen on image 12 of series 2. There is scarring scarring at the right apex. There are smaller similar appearing densities in the bilateral upper lobes. The heart size is normal. There is no pericardial or pleural effusion. Limited images of the upper abdomen demonstrate a fatty infiltrated liver. No suspicious infiltrate or nodule identified. IMPRESSION: Noncalcified, nonspecific irregular densities bilateral upper lobes. Favor an inflammatory etiology. However, per Fleischner criteria either a 3 month follow-up CT or PET-CT is recommended. Reviewed, Interpreted and Dictated by Salinas Kilpatrick MD Transcribed by Alice Setiner Authenticated and [facility]
--- NOTE | 2022-05-05 15:30 | PC.NURSE ---
PFT and 6 Minute walk completed without complications. Albuterol 0.083% given via HHN, per protocol, Pt tolerated tx well.
== END ==
PROVIDERS: PCP Nurse Practitioner Family; Visit Provider Internal Medicine Pulmonary Disease
DX: R06.09 Other forms of dyspnea (principal); R91.8 Other nonspecific abnormal finding of lung field
CPT/HCPCS: 71250; 87116; 87186; 87206; 94060; 94618; 94726; 94729

== ENCOUNTER 2022-07-10 18:36 | Emergency (ER) | payer SELFPAY ==
[2022-07-10 18:40] VITALS: BP 146/106; PULSE 95; RESP 20; TEMP 37.4; O2SAT 96; BMI 34.4
--- NOTE | 2022-07-10 18:54 | XR_ITS ---
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 TECHNIQUE: Imaging protocol: Radiologic exam of the Left ankle. Views: 3 or more views. COMPARISON: CR XR TIBIA FIBULA LT 2V 07/10/2022 6:53 PM FINDINGS: Bones/joints: Calcaneus enthesophytes. No acute fracture or dislocation. Soft tissues: Normal. IMPRESSION: No acute fracture or dislocation.
--- NOTE | 2022-07-10 18:54 | XR_ITS ---
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 TECHNIQUE: Imaging protocol: Radiologic exam of the Left tibia and fibula. Views: 2 views. COMPARISON: US ARTERIAL LOWER EXT REST 04/21/2022 8:59 AM FINDINGS: Bones/joints: No acute fracture or dislocation. Soft tissues: Normal. IMPRESSION: No acute fracture or dislocation.
--- NOTE | 2022-07-10 19:14 | EXP.UTC ---
Discharge Plan Disposition Patient Disposition: Home, Self-Care Condition: Good Prescriptions Prescriptions: New ibuprofen [IBU] 800 mg tablet 800 mg PO Q8HP PRN (Reason: Moderate Pain) Qty: 30 0RF No Action metoprolol succinate 25 mg tablet extended release 24 hr 25 mg PO QDAY Qty: 90 3RF lisinopril 10 mg tablet 10 mg PO BID Qty: 60 5RF atorvastatin 40 MG tablet 40 mg PO HS paroxetine HCl 30 MG tablet 30 mg PO DAILY buspirone 7.5 mg tablet 7.5 mg PO BID Referrals Follow up/Referrals: Gareth Chu APRN [Primary Care Provider] - See instructions David Van MD [Staff Physician] - See instructions Activity Restrictions/Add. Instructions Additional Instructions/Restrictions: Rest the extremity, Elevate the extremity as tolerated while you are resting. Take ibuprofen for pain. I sent in a prescription to your pharmacy. Follow up with Dr. Van (orthopedics). I put in a referral but you need to call his office and schedule an appointment. Follow up with your regular doctor. GO TO THE ER FOR ANY WORSENING SYMPTOMS Clinical Impressions Clinical Impression: Pain of left calf, Ankle pain, left, Left ankle sprain Stand Alone Forms Stand Alone Forms: Work/School Release Instructions Patient Instructions: Ankle Sprain, DI for Ankle Sprain, How to Use a Walking Boot Discharge ED Provider: Rajan Souza [facility] General Stated complaint: ao 07/03 left ankle Mode of Arrival: Ambulatory Source of Information: Patient Limitations: No Limitations Time Seen by Provider: 07/10/22 19:13 Description of Symptoms (Recalled from Triage Doc. by RN): PATIENT C/O LEFT CALF PAIN AFTER TWISTING HIS LEG LAST SUNDAY HEENT Symptoms (Recalled from RN notes): No Resp Symptoms (Recalled from RN notes): No Skin Symptoms (Recalled from RN notes): No MS Symptoms (Recalled from RN notes): Yes Functional Status (Recalled from RN notes): WNL History of Present Illness Provider Complaint: He twisted his left leg 3 days ago. He states that since then he has had pain in his calf. The pain is worse with walking. He denies any other injury. Related Data Home Medications Medication Instructions Recorded Confirmed atorvastatin 40 mg tablet 40 mg PO HS Cholesterol 07/19/20 04/28/22 paroxetine HCl 30 mg tablet 30 mg PO DAILY Anxiety 07/19/20 04/28/22 buspirone 7.5 mg tablet 7.5 mg PO BID Anxiety 11/26/20 04/28/22 Previous Rx's Medication Instructions Recorded metoprolol succinate 25 mg 25 mg PO QDAY #90 tabs 04/13/22 tablet,extended release 24 hr lisinopril 10 mg tablet 10 mg PO BID blood pressure #60 04/27/22 tabs ibuprofen 800 mg tablet (IBU) 800 mg PO Q8HP PRN Moderate Pain 07/10/22 #30 tabs Allergies Allergy/AdvReac Type Severity Reaction Status Date / Time No Known Allergies Allergy Verified 04/28/22 11:50 Worker's Comp Is this a Worker's Comp case?: No PFSH PFSH Medical History Abnormal chest xray Cavitary lesion of lung Depression Dyspnea on exertion Hyperlipidemia Hypertension Pulmonary emphysema Smoking greater than 30 pack years Tobacco abuse counseling Tobacco abuse disorder Surgical History No significant past surgical history Family History Other Coronary artery disease Heart attack Social History Smoking Status: Current every day smoker tobacco type: cigarettes packs per day: 2 second hand exposure: No alcohol intake: never current occupational status: employed Travel in the last 8 weeks: None housing: house current occupational exposures/hazards: No caffeine: Yes ROS Obtained: Yes All systems reviewed & no additional complaints except as documented Constitutional Constitutional: Denies chills and Denies
[2022-07-10 19:37] VITALS: BP 146/106; PULSE 95; RESP 20; TEMP 37.4; O2SAT 96
== END 2022-07-10 19:44 | disposition home or self-care (01) ==
PROVIDERS: Emergency Provider Nurse Practitioner Family; PCP Nurse Practitioner Family
DX: S93.402A Sprain of unspecified ligament of left ankle, initial encounter (principal); M79.605 Pain in left leg; I10 Essential (primary) hypertension; E78.5 Hyperlipidemia, unspecified; J43.9 Emphysema, unspecified; F17.210 Nicotine dependence, cigarettes, uncomplicated; Z79.1 Long term (current) use of non-steroidal anti-inflammatories (NSAID); Z82.49 Family history of ischemic heart disease and other diseases of the circulatory system; W50.2XXA Accidental twist by another person, initial encounter
CPT/HCPCS: 73590; 73610; 99213; G0463